=== PATIENT | female | born 1935 | race American Indian/Alaskan Native ===

== ENCOUNTER 2017-07-15 17:07 | Inpatient (IN) | payer MEDICARE, OTHER ==
[2017-07-15] MEDS ORDERED: MILK OF MAGNESIA PO PRN (17:35)
[2017-07-15] MEDS ORDERED: DULCOLAX PR PRN (17:35)
[2017-07-15] MEDS ORDERED: TYLENOL PO PRN (17:35)
[2017-07-15] MEDS ORDERED: ZOFRAN IV PRN (17:35)
--- NOTE | 2017-07-15 20:46 | Short Stay Summary ---
<HOLLY PADILLA - Last Filed: 07/15/17 20:44> Short Stay Documentation Date of service: 07/15/17 Narrative H&P: 81 year old female with dementia who had left lower extremity atherectomy and angioplasty for left lower extremity CLI. Perclose right [employer], but has some nausea and vomiting from anesthesia and developed right groin hematoma. Will admit for overnight monitoring and pressure dressing of RLE. - History H&P: obtained from office - Allergies and Medications Current Medications: Allergies No Known Allergies Allergy (Verified 04/28/13 16:21) Home Medications Medication Instructions Recorded Confirmed Last Taken Type ARIPiprazole [Abilify TAB] 5 mg PO DAILY 04/28/13 04/28/13 Unknown History Memantine [Namenda] 5 mg PO BID #60 tablet 05/02/13 Unknown Rx Simvastatin [Zocor TAB] 20 mg PO QHS #30 tablet 05/02/13 Unknown Rx amLODIPine [Norvasc] 10 mg PO QDAY #30 tablet 05/02/13 Unknown Rx glyBURIDE [Diabeta] 2.5 mg PO BID #60 tablet 05/02/13 Unknown Rx Active Medications Acetaminophen (Tylenol) 650 mg PO Q4H PRN PRN Reason: Pain MILD(1-3)/Fever >100.5/GARCIA Amlodipine Besylate (Norvasc) 10 mg PO QDAY [facility] Aspirin (Halfprin Ec) 81 mg PO QDAY [facility] Bisacodyl (Dulcolax) 10 mg AL QDAY PRN PRN Reason: Constipation unrelieved by MOM Clopidogrel Bisulfate (Plavix) 75 mg PO QDAY [facility] Glyburide (Diabeta) 2.5 mg PO BID [facility] Insulin Aspart (Novolog) 0 units SUB-Q ACHS [facility] PRN Reason: Protocol Magnesium Hydroxide (Milk Of Magnesia) 30 ml PO Q4H PRN PRN Reason: Constipation Memantine (Namenda) 5 mg PO BID [facility] Miscellaneous Medication (Aripiprazole [Abilify Tab]) 5 mg PO DAILY [facility] Miscellaneous Medication (Simvastatin) 20 mg PO QHS [facility] Ondansetron HCl (Zofran) 4 mg IV Q8H PRN PRN Reason: N/V unrelieved by Reglan - Physical exam General appearance: no acute distress Lungs: Normal air movement Extremities: normal temperature, normal color, abnormal (mild right groin hematoma, right groin compression bandage) - Disposition Disposition: DC-01 TO HOME OR SELFCARE - Discharge Diagnoses (1) Hematoma of groin Status: Acute Short Stay Discharge Plan Follow up with: CHRIS SANTOS MD [Primary Care Provider] - 7 Days HOLLY PADILLA MD [Staff Physician] - 14 Days <MAGO BREWER - Last Filed: 07/16/17 12:02> Short Stay Documentation Date of service: 07/16/17 - Allergies and Medications Current Medications: Allergies No Known Allergies Allergy (Verified 04/28/13 16:21) Home Medications Medication Instructions Recorded Confirmed Last Taken Type ARIPiprazole [Abilify TAB] 5 mg PO DAILY 04/28/13 04/28/13 Unknown History Memantine [Namenda] 5 mg PO BID #60 tablet 05/02/13 Unknown Rx Simvastatin [Zocor TAB] 20 mg PO QHS #30 tablet 05/02/13 Unknown Rx amLODIPine [Norvasc] 10 mg PO QDAY #30 tablet 05/02/13 Unknown Rx glyBURIDE [Diabeta] 2.5 mg PO BID #60 tablet 05/02/13 Unknown Rx Active Medications Acetaminophen (Tylenol) 650 mg PO Q4H PRN PRN Reason: Pain MILD(1-3)/Fever >100.5/GARCIA Amlodipine Besylate (Norvasc) 10 mg PO DAILY [facility] Aripiprazole (Abilify) 5 mg PO QDAY [facility] Last Admin: 07/16/17 10:00 Dose: Not Given Aspirin (Halfprin Ec) 81 mg PO QDAY [facility] Bisacodyl (Dulcolax) 10 mg AL QDAY PRN PRN Reason: Constipation unrelieved by MOM Calcitriol (Rocaltrol) 0.25 mcg PO MoWeFr [facility] Clonidine HCl (Catapres) 0.1 mg PO BID [facility] Last Admin: 07/16/17 10:00 Dose: Not Given Clopidogrel Bisulfate (Plavix) 75 mg PO QDAY [facility] Last Admin: 07/16/17 07:56 Dose: Not Given Dextrose (D50w (25gm) Syringe) 50 ml IV PRN PRN PRN Reason: Hypoglycemia Donepezil HCl (Aricept) 10 mg PO QHS [facility] Famotidine (Pepcid) 20 mg PO BID@1200,1700 [facility] Furosemide (Lasix) 40 mg PO QDAY [facility] Glyburide (Diabeta) 2.5 mg PO BID [facility] Last Admin: 07/16/17 07:54 Dose: Not Given Insulin Aspart (Novolog) 0 units SUB-Q ACHS [facility] PRN Reason: Protocol Last Admin: 07/16/17 07:30 Dose: Not Given Isosorbide Dinitrate/Hydralazine (Bidil 20/37.5mg) 1 each PO Q8HR [facility] Last Admin: 07/16/17 08:30 Dose: Not Given Levothyroxine Sodium (Synthroid) 25 mcg PO Q48H [facility] Last Admin: 07/16/17 08:30 Dose: Not Given Linagliptin (Tradjenta) 5 mg PO QDAY [facility] Magnesium Hydroxide (Milk Of Magnesia) 30 ml PO Q4H PRN PRN Reason: Constipation Memantine (Namenda) 5 mg PO BID [facility] Last Admin: 07/16/17 00:01 Dose: 5 mg Metoprolol Succinate (Toprol Xl) 50 mg PO QHS [facility] Ondansetron HCl (Zofran) 4 mg IV Q8H PRN PRN Reason: N/V unrelieved by Reglan Pravastatin Sodium (Pravachol) 40 mg PO QHS [facility] Last Admin: 07/16/17 00:01 Dose: 40 mg - Hospital course Hospital course: Patient was sent from soft intervention due to the development of right groin hematoma. She had a CT scan to rule out retroperitoneal hematoma. It was negative. She had arterial duplex this morning to rule out pseudoaneurysm, it was negative. Short Stay Discharge Plan Activity: advance as tolerated Diet: regular Wound: open to air
--- NOTE | 2017-07-15 20:48 | Event Note ---
Date: 07/15/17 Vital signs stable. No tachycardia. Doing well. Will check CBC today and tomorrow. CT a/p without contrast to exclude RP bleed. Supine overnight with pressure bandage. Tomorrow AM will get arterial doppler. Afterwards, will assess for discharge.
[2017-07-15] MEDS ORDERED: D50W (25GM) Syringe IV PRN (20:51)
[2017-07-15] MEDS ORDERED: NACL 0.9% 1000 ML 1,000 ML IV ONE (21:00)
[2017-07-15 21:40] LABS: Basophils % (Auto) 0.3 % (0.0-1.8); Eosinophils % (Auto) 0.4 % (0.0-4.3); Hematocrit 28.1 % (30.3-42.9); Hemoglobin 9.5 gm/dl (10.1-14.3); Mean Corpuscular HGB Conc 34 % (30-34); Mean Corpuscular Hemoglobin 28 pg (28-32); Mean Corpuscular Volume 83 fl (79-97); Platelet Count 438 K/mm3 (140-440); Red Blood Count 3.37 M/mm3 (3.65-5.03); Red Cell Distribution Width 15.1 % (13.2-15.2); White Blood Count 10.1 K/mm3 (4.5-11.0)
[2017-07-15] MEDS ORDERED: DIABETA PO SCH (22:00)
[2017-07-15] MEDS ORDERED: NON-FORMULARY (Simvastatin 20 MG) PO SCH (22:00)
[2017-07-15] MEDS ORDERED: PLAVIX PO ONE (22:53)
--- NOTE | 2017-07-15 23:34 | Cat Scan Report ---
FINAL REPORT PROCEDURE: CT ABDOMEN PELVIS WO CON TECHNIQUE: Computerized axial tomography of the abdomen and pelvis was performed without intravenous contrast. This study is performed without intravascular contrast material and its sensitivity for abdominal and pelvic pathology, including neoplasms, inflammation, abscess, free fluid, thrombosis, arterial dissection and infarction, is reduced compared with a contrast enhanced study. HISTORY: RETROPERITONEAL HEMATOMA COMPARISON: No prior studies are available for comparison. FINDINGS: Lower Lung sheikh: There is mild dependent atelectasis. Lung bases otherwise unremarkable. Upper Abdomen: Large densely calcified gallstones seen in the gallbladder. Gallbladder otherwise unremarkable. The unenhanced CT scan of the liver, the adrenal glands, the pancreas and the spleen are unremarkable. Small hiatal hernia is present. Kidneys, Ureters and Urinary bladder: Renal arterial calcifications visualized on the left. No renal calculi are seen on the right or left. No hydronephrosis or renal masses are seen. The ureters and urinary bladder are unremarkable. Retroperitoneum: Atherosclerotic changes are seen in the abdominal aorta. No aneurysm is visualized. No abnormal retroperitoneal fluid or masses are seen that would suggest retroperitoneal hemorrhage. Nonspecific subcentimeter lymph nodes are seen in the retroperitoneum. No pathologically enlarged lymph nodes are identified. Bowel: No abnormalities are identified. No evidence of bowel obstruction. There is no free intraperitoneal gas. Minimal ascites collected in the lower pelvis posteriorly. Normal-appearing appendix is seen in the right lower quadrant. Reproductive organs: Uterus is surgically absent. No abnormal adnexal masses are seen. Other: No acute bony abnormalities are identified. There is a large open wound in the right groin. There is inflammatory change seen in the adjacent subcutaneous adipose tissue. IMPRESSION: No evidence of retroperitoneal hemorrhage or mass. Minimal ascites present. Prior hysterectomy. Large open wound seen in the right groin. Inflammatory change visualized. No focal fluid collection is identified..
[2017-07-16] MEDS: NAMENDA PO SCH ×3 (00:01→23:33)
[2017-07-16] MEDS: PRAVACHOL PO SCH ×2 (00:01→23:32)
[2017-07-16] MEDS: CATAPRES PO SCH ×3 (00:04→23:35)
[2017-07-16] MEDS: NOVOLOG SUB-Q SCH ×5 (00:13→23:15)
[2017-07-16] MEDS ORDERED: SYNTHROID PO SCH (06:00)
[2017-07-16 06:30] LABS: Basophils % (Auto) 0.7 % (0.0-1.8); Eosinophils % (Auto) 3.5 % (0.0-4.3); Hematocrit 23.3 % (30.3-42.9); Hemoglobin 7.5 gm/dl (10.1-14.3); Mean Corpuscular HGB Conc 32 % (30-34); Mean Corpuscular Hemoglobin 27 pg (28-32); Mean Corpuscular Volume 84 fl (79-97); Platelet Count 347 K/mm3 (140-440); Red Blood Count 2.77 M/mm3 (3.65-5.03); Red Cell Distribution Width 14.9 % (13.2-15.2); White Blood Count 6.8 K/mm3 (4.5-11.0)
[2017-07-16] MEDS: BIDIL 20/37.5MG PO SCH ×4 (07:54→23:34)
[2017-07-16] MEDS: PLAVIX PO SCH ×2 (07:56→12:48)
[2017-07-16] MEDS ORDERED: PNEUMOVAX 23 IM ONE (09:02)
[2017-07-16] MEDS ORDERED: Fluarix Quad 2017-2018(36 MOS+ IM ONE (09:02)
[2017-07-16] MEDS ORDERED: NON-FORMULARY (Aripiprazole [Abilify Tab] 5 MG) PO SCH (10:00)
[2017-07-16] MEDS ORDERED: ABILIFY PO SCH (10:00)
[2017-07-16] MEDS ORDERED: TRADJENTA PO SCH (10:00)
[2017-07-16] MEDS: PEPCID PO SCH ×2 (10:00→20:49)
[2017-07-16] MEDS ORDERED: HALFPRIN EC PO SCH (10:00)
[2017-07-16] MEDS ORDERED: NORVASC PO SCH ×2 (10:00)
[2017-07-16] MEDS ORDERED: LASIX PO SCH (10:00)
--- NOTE | 2017-07-16 10:47 | Progress Note ---
Assessment and Plan s/p left LE angiogram, right groin access with small hematoma. CT scan negative for retroperitoneal hematoma. plan for arterial duplex today. If negative - d/c home. Subjective Date of service: 07/16/17 Principal diagnosis: right groin hematoma Interval history: right groin with pressure dressing, no complains Objective - Exam Narrative Exam: small right groin hematoma, no bleeding, feet warm - Constitutional Vitals: Vital Signs - 12hr 07/16/17 07/16/17 00:04 07:41 Temperature 98.9 F Pulse Rate 63 66 Respiratory 18 Rate Blood Pressure 152/60 172/52 O2 Sat by Pulse 98 Oximetry - Labs CBC & Chem 7: 07/16/17 05:40 Labs: Abnormal lab results 07/15/17 07/15/17 07/16/17 Range/Units 20:57 22:40 05:40 RBC 3.37 L 2.77 L (3.65-5.03) M/mm3 Hgb 9.5 L 7.5 L (10.1-14.3) gm/dl Hct 28.1 L 23.3 L (30.3-42.9) % MCH 27 L (28-32) pg Lymph % (Auto) 4.7 L 12.2 L (13.4-35.0) % [facility] % (Auto) 8.9 H 12.1 H (0.0-7.3) % Lymph # 0.5 L 0.8 L (1.2-5.4) K/mm3 [facility] # 0.9 H (0.0-0.8) K/mm3 Seg Neutrophils % 85.7 H 71.5 H (40.0-70.0) % Seg Neutrophils # 8.6 H (1.8-7.7) K/mm3 POC Glucose 180 H (70-105) 07/16/17 Range/Units 07:01 RBC (3.65-5.03) M/mm3 Hgb (10.1-14.3) gm/dl Hct (30.3-42.9) % MCH (28-32) pg Lymph % (Auto) (13.4-35.0) % [facility] % (Auto) (0.0-7.3) % Lymph # (1.2-5.4) K/mm3 [facility] # (0.0-0.8) K/mm3 Seg Neutrophils % (40.0-70.0) % Seg Neutrophils # (1.8-7.7) K/mm3 POC Glucose 115 H (70-105)
[2017-07-16] MEDS ORDERED: NACL 0.9% 500 ML 500 ML IV ONE (11:06)
--- NOTE | 2017-07-16 11:06 | Consultation ---
History of Present Illness - Reason for Consult Consult date: 07/16/17 anemia - History of Present Illness this is a 81 year old female with dementia who had left lower extremity atherectomy and angioplasty for left lower extremity CLI yesterday. following the procedure she developed some nausea and vomiting from anesthesia and developed right groin hematoma. She was admitted for overnight monitoring and pressure dressing of RLE. This morning her hb was 7.5, CT abdomen ordered for possible retroperitoneal hematoma. Patient denies any bloody vomitus, blood in the stool, dizziness, chest pain or SOB. No reported hematurea. Right groin hematoma had very minimal blood loss. Medicine service was consulted for further evaluation and management of her anemia Review of System: Constitutional: no fever, no chills, no weight loss Ears, eyes, nose, mouth and throat: no nasal congestion, no nasal discharge, no sinus pressure, no vision change, no red eye. Neck: No neck pain or rigidity. Cardiovascular: No chest pain, no orthopnea, no palpitations, no leg swelling Respiratory: No shortness of breath, no cough, no congestion, no wheezing Gastrointestinal: no abdominal pain, no nausea, no vomiting Genitourinary : no dysuria, no hematuria Musculoskeletal: no joint swelling or muscle ache Integumentary: no rash, no pruritis Neurological: no parathesias, no numbness, no tingling Endocrine: no cold or heat intolerance, no polyuria or polydipsia Hematologic/Lymphatic: no easy bruising, no easy bleeding, no gland swelling Allergic/Immunologic: no urticaria, no angioedema. Past History Past Medical History: diabetes, hypertension, hyperlipidemia, PVD, other ( dementia) Past Surgical History: Other (angioplasty yesterday) Social history: denies: smoking, alcohol abuse, IV drug use Family history: hypertension Medications and Allergies Allergies Allergy/AdvReac Type Severity Reaction Status Date / Time No Known Allergies Allergy Verified 04/28/13 16:21 Home Medications Medication Instructions Recorded Confirmed Last Taken Type ARIPiprazole [Abilify TAB] 5 mg PO DAILY 04/28/13 04/28/13 Unknown History Memantine [Namenda] 5 mg PO BID #60 tablet 05/02/13 Unknown Rx Simvastatin [Zocor TAB] 20 mg PO QHS #30 tablet 05/02/13 Unknown Rx amLODIPine [Norvasc] 10 mg PO QDAY #30 tablet 05/02/13 Unknown Rx glyBURIDE [Diabeta] 2.5 mg PO BID #60 tablet 05/02/13 Unknown Rx Active Meds: Active Medications Acetaminophen (Tylenol) 650 mg PO Q4H PRN PRN Reason: Pain MILD(1-3)/Fever >100.5/GARCIA Amlodipine Besylate (Norvasc) 10 mg PO DAILY [facility] Aripiprazole (Abilify) 5 mg PO QDAY [facility] Aspirin (Halfprin Ec) 81 mg PO QDAY [facility] Bisacodyl (Dulcolax) 10 mg DC QDAY PRN PRN Reason: Constipation unrelieved by MOM Calcitriol (Rocaltrol) 0.25 mcg PO MoWeFr [facility] Clonidine HCl (Catapres) 0.1 mg PO BID [facility] Last Admin: 07/16/17 00:04 Dose: 0.1 mg Clopidogrel Bisulfate (Plavix) 75 mg PO QDAY [facility] Last Admin: 07/16/17 07:56 Dose: Not Given Dextrose (D50w (25gm) Syringe) 50 ml IV PRN PRN PRN Reason: Hypoglycemia Donepezil HCl (Aricept) 10 mg PO QHS [facility] Famotidine (Pepcid) 20 mg PO BID@1200,1700 [facility] Furosemide (Lasix) 40 mg PO QDAY [facility] Glyburide (Diabeta) 2.5 mg PO BID [facility] Last Admin: 07/16/17 07:54 Dose: Not Given Insulin Aspart (Novolog) 0 units SUB-Q ACHS [facility] PRN Reason: Protocol Last Admin: 07/16/17 00:13 Dose: Not Given Isosorbide Dinitrate/Hydralazine (Bidil 20/37.5mg) 1 each PO Q8HR [facility] Last Admin: 07/16/17 08:30 Dose: Not Given Levothyroxine Sodium (Synthroid) 25 mcg PO Q48H [facility] Last Admin: 07/16/17 08:30 Dose: Not Given Linagliptin (Tradjenta) 5 mg PO QDAY [facility] Magnesium Hydroxide (Milk Of Magnesia) 30 ml PO Q4H PRN PRN Reason: Constipation Memantine (Namenda) 5 mg PO BID [facility] Last Admin: 07/16/17 00:01 Dose: 5 mg Metoprolol Succinate (Toprol Xl) 50 mg PO QHS [facility] Ondansetron HCl (Zofran) 4 mg IV Q8H PRN PRN Reason: N/V unrelieved by Reglan Pravastatin Sodium (Pravachol) 40 mg PO QHS [facility] Last Admin: 07/16/17 00:01 Dose: 40 mg Exam - Physical Exam Narrative exam: GENERAL: This is well-developed well-nourished elderly -Mexican female lying on bed appeared to be in no discomfort. HEENT: Normocephalic. Atraumatic. Extraocular motions are intact. No conjunctival congestion or icterus. Patient has moist mucous membranes. External auditory canal and nares patent bilaterally. NECK: Supple. Trachea midline. No JVD, thyromagaly or lymphadenopathy. CHEST/LUNGS: Clear to auscultated bilaterally. There is no respiratory distress noted, breathing nonlabored. No wheezes crackles or rhonchi. HEART/CARDIOVASCULAR: Regular in rate and rhythm. PMI at the apex. There is no gallop rub or murmur. ABDOMEN: Abdomen is soft, nontender. Patient has normal bowel sounds. There is no abdominal distention. No organomagaly or rigidity. SKIN: There is no rash, no erythrema. There is no diaphoresis. Warm and dry. NEUROLOGY: The patient is awake, alert, and oriented. The patient is cooperative. The patient has normal speech. No focal motor deficit. MUSCULOSKELETAL: No joint effusion or tenderness. Muscle strength equal bilaterally. No muscle wasting. EXTRIMITY: No edema, cyanosis or clubbing. Right groin with slightly blood stained pressure dressing with no active bleeding PSYCH: No depression or anxiety noted. Cooperative. - Constitutional Vitals: Temp Pulse Resp BP Pulse Ox 98.9 F 66 18 172/52 98 07/16/17 07:41 07/16/17 07:41 07/16/17 07:41 07/16/17 07:41 07/16/17 07:41 Results - Labs CBC & Chem 7: 07/17/17 05:55 07/16/17 13:28 Labs: Abnormal lab results 07/15/17 07/15/17 07/16/17 Range/Units 20:57 22:40 05:40 RBC 3.37 L 2.77 L (3.65-5.03) M/mm3 Hgb 9.5 L 7.5 L (10.1-14.3) gm/dl Hct 28.1 L 23.3 L (30.3-42.9) % MCH 27 L (28-32) pg Lymph % (Auto) 4.7 L 12.2 L (13.4-35.0) % [place] % (Auto) 8.9 H 12.1 H (0.0-7.3) % Lymph # 0.5 L 0.8 L (1.2-5.4) K/mm3 [place] # 0.9 H (0.0-0.8) K/mm3 Seg Neutrophils % 85.7 H 71.5 H (40.0-70.0) % Seg Neutrophils # 8.6 H (1.8-7.7) K/mm3 POC Glucose 180 H (70-105) 07/16/17 Range/Units 07:01 RBC (3.65-5.03) M/mm3 Hgb (10.1-14.3) gm/dl Hct (30.3-42.9) % MCH (28-32) pg Lymph % (Auto) (13.4-35.0) % [place] % (Auto) (0.0-7.3) % Lymph # (1.2-5.4) K/mm3 [place] # (0.0-0.8) K/mm3 Seg Neutrophils % (40.0-70.0) % Seg Neutrophils # (1.8-7.7) K/mm3 POC Glucose 115 H (70-105) - Imaging and Cardiology CT scan - abdomen: report reviewed (no retroperitoneal hematoma) Assessment and Plan Right groin hematoma Anemia due to blood loss h/o dementia Hypertension, controlled with current meds Hyperkalemia, likely from declining renal function Pham, likely due to vasomotor vs contrast nephropathy PVD - plan for vascular US today - CT abdomen/pelvis showed no intra-abdominal hematoma - will transfuse one unit of packed RBC - cont home meds, hold any heparin product - Monitor renal function, monitor electrolytes level - We'll do anemia workup before transportation - Recommend gentle hydration, and to continue current home meds - Recommend DVT prophylaxis with SCD
[2017-07-16 14:35] LABS: Hemoglobin 6.8 gm/dl (10.1-14.3); Mean Corpuscular HGB Conc 34 % (30-34); Mean Corpuscular Hemoglobin 28 pg (28-32); Mean Corpuscular Volume 83 fl (79-97); Platelet Count 324 K/mm3 (140-440); Red Blood Count 2.41 M/mm3 (3.65-5.03); Red Cell Distribution Width 15.1 % (13.2-15.2); White Blood Count 6.1 K/mm3 (4.5-11.0)
[2017-07-16 14:52] LABS: Calcium 8.4 mg/dL (8.4-10.2); Chloride 96.3 mmol/L (98-107); Potassium 5.1 mmol/L (3.6-5.0)
[2017-07-16 15:03] LABS: Hematocrit 19.9 % (30.3-42.9)
--- NOTE | 2017-07-16 15:07 | Event Note ---
Date: 07/16/17 Got consult to evaluate the pt for anemia. CT abdomen/pelvis did not show any retroperitoneal bleeding. vascular team repeated right LE US and plannned to d/c the patient after blood transfusion. Ordered stat lab for anemia work up. Will sign off as pt will be discharge, please call us back if pt remains in house.
[2017-07-16 16:18] LABS: Iron 22 ug/dL (37-170); Total Iron Binding Capacity 259 mcg/dL (250-450); Transferrin 219 mg/dl (192-382)
[2017-07-16] MEDS ORDERED: NACL 0.9% 500 ML 500 ML ONE (20:59)
[2017-07-16] MEDS ORDERED: ARICEPT PO SCH (22:00)
[2017-07-16] MEDS ORDERED: TOPROL XL PO SCH (22:00)
[2017-07-16] MEDS ORDERED: CATAPRES PO SCH (22:00)
[2017-07-17 06:20] LABS: Hematocrit 27.9 % (30.3-42.9); Hemoglobin 9.3 gm/dl (10.1-14.3)
[2017-07-17] MEDS: BIDIL 20/37.5MG PO SCH (07:57)
[2017-07-17] MEDS ORDERED: FEOSOL PO SCH (10:00)
[2017-07-17 11:18] LABS: Calcium 8.9 mg/dL (8.4-10.2); Potassium 4.8 mmol/L (3.6-5.0)
--- NOTE | 2017-07-17 13:58 | Progress Note ---
Assessment and Plan s/p left LE angiogram, right groin access with small hematoma. CT scan negative for retroperitoneal hematoma. arterial duplex negative patient had low H/H and received 1u PRBC. She responded well. f/u nephrology for cr 2.9 -3.[address] Ferguson those numbers are baseline plan for discharge home today Subjective Date of service: 07/17/17 Principal diagnosis: right groin hematoma Interval history: right groin small hematoma, no complains Objective - Exam Narrative Exam: small right groin hematoma, no bleeding, feet warm - Constitutional Vitals: Vital Signs - 12hr 07/17/17 07:32 Temperature 98.8 F Pulse Rate 66 Respiratory 16 Rate Blood Pressure 184/51 O2 Sat by Pulse 98 Oximetry - Labs CBC & Chem 7: 07/17/17 05:55 07/17/17 10:27 Labs: Abnormal lab results 07/16/17 07/16/17 07/16/17 Range/Units 13:28 13:28 13:37 RBC 2.41 L (3.65-5.03) M/mm3 Hgb 6.8 L (10.1-14.3) gm/dl Hct 19.9 L* (30.3-42.9) % Sodium 132 L (137-145) mmol/L Potassium 5.1 H (3.6-5.0) mmol/L Chloride 96.3 L (98-107) mmol/L BUN 46 H (7-17) mg/dL Creatinine 2.9 H (0.7-1.2) mg/dL Glucose 165 H (65-100) mg/dL POC Glucose (70-105) Iron (37-170) ug/dL Vitamin B12 (211-911) pg/mL Crossmatch See Detail 07/16/17 07/16/17 07/16/17 Range/Units 15:41 15:47 15:57 RBC (3.65-5.03) M/mm3 Hgb (10.1-14.3) gm/dl Hct (30.3-42.9) % Sodium (137-145) mmol/L Potassium (3.6-5.0) mmol/L Chloride (98-107) mmol/L BUN (7-17) mg/dL Creatinine (0.7-1.2) mg/dL Glucose (65-100) mg/dL POC Glucose 142 H (70-105) Iron 22 L (37-170) ug/dL Vitamin B12 1212 H (211-911) pg/mL Crossmatch 07/17/17 07/17/17 07/17/17 Range/Units 05:55 10:27 11:45 RBC (3.65-5.03) M/mm3 Hgb 9.3 L (10.1-14.3) gm/dl Hct 27.9 L D (30.3-42.9) % Sodium 133 L (137-145) mmol/L Potassium (3.6-5.0) mmol/L Chloride (98-107) mmol/L BUN 40 H (7-17) mg/dL Creatinine 3.0 H (0.7-1.2) mg/dL Glucose 130 H (65-100) mg/dL POC Glucose 144 H (70-105) Iron (37-170) ug/dL Vitamin B12 (211-911) pg/mL Crossmatch
--- NOTE | 2017-07-17 14:48 | Progress Note ---
Assessment and Plan Right groin hematoma following s/p left LE angiogram Anemia s/p 1 unit PRBC transfusion h/o dementia Hypertension, controlled with current meds Hyperkalemia, likely from declining renal function CKD, Cr at baseline PVD - CT scan negative for retroperitoneal hematoma. - arterial duplex negative - patient had low H/H and received 1u PRBC. She responded well. - patient's baseline creatine cr 2.0 -3.0 - plan for discharge home today with outpt followup Subjective Date of service: 07/17/17 Principal diagnosis: right groin hematoma Interval history: Pt seen and examined no further acute event O/n No overt acute bleeding reported resolved right groin hematoma patient denies any acute chest pain or SOB Objective - Exam Narrative Exam: GENERAL: This is well-developed well-nourished elderly -Maltese female lying on bed appeared to be in no discomfort. HEENT: No conjunctival congestion or icterus. Patient has moist mucous membranes. NECK: Supple. Trachea midline. No JVD CHEST/LUNGS: Clear to auscultated bilaterally. There is no respiratory distress noted, breathing nonlabored. HEART/CARDIOVASCULAR: Regular in rate and rhythm. PMI at the apex. ABDOMEN: Abdomen is soft, nontender. Patient has normal bowel sounds. SKIN: There is no rash, no erythrema. NEUROLOGY: The patient is awake, alert, and oriented. The patient is cooperative. MUSCULOSKELETAL: No joint effusion or tenderness. EXTRIMITY: No edema, cyanosis or clubbing. Right groin with slightly blood stained pressure dressing with no active bleeding PSYCH: Cooperative. - Constitutional Vitals: Vital Signs - 12hr 07/17/17 07:32 Temperature 98.8 F Pulse Rate 66 Respiratory 16 Rate Blood Pressure 184/51 O2 Sat by Pulse 98 Oximetry - Labs CBC & Chem 7: 07/17/17 05:55 07/17/17 10:27 Labs: Abnormal lab results 07/16/17 07/16/17 07/16/17 Range/Units 13:28 13:28 13:37 Hgb (10.1-14.3) gm/dl Hct 19.9 L* (30.3-42.9) % Sodium 132 L (137-145) mmol/L Potassium 5.1 H (3.6-5.0) mmol/L Chloride 96.3 L (98-107) mmol/L BUN 46 H (7-17) mg/dL Creatinine 2.9 H (0.7-1.2) mg/dL Glucose 165 H (65-100) mg/dL POC Glucose (70-105) Iron (37-170) ug/dL Vitamin B12 (211-911) pg/mL Crossmatch See Detail 07/16/17 07/16/17 07/16/17 Range/Units 15:41 15:47 15:57 Hgb (10.1-14.3) gm/dl Hct (30.3-42.9) % Sodium (137-145) mmol/L Potassium (3.6-5.0) mmol/L Chloride (98-107) mmol/L BUN (7-17) mg/dL Creatinine (0.7-1.2) mg/dL Glucose (65-100) mg/dL POC Glucose 142 H (70-105) Iron 22 L (37-170) ug/dL Vitamin B12 1212 H (211-911) pg/mL Crossmatch 07/17/17 07/17/17 07/17/17 Range/Units 05:55 10:27 11:45 Hgb 9.3 L (10.1-14.3) gm/dl Hct 27.9 L D (30.3-42.9) % Sodium 133 L (137-145) mmol/L Potassium (3.6-5.0) mmol/L Chloride (98-107) mmol/L BUN 40 H (7-17) mg/dL Creatinine 3.0 H (0.7-1.2) mg/dL Glucose 130 H (65-100) mg/dL POC Glucose 144 H (70-105) Iron (37-170) ug/dL Vitamin B12 (211-911) pg/mL Crossmatch
--- NOTE | 2017-07-17 15:14 | Progress Note ---
Subjective Date of service: 07/17/17 Principal diagnosis: right groin hematoma Interval history: Was called to consult on Pt. Pt's daughter says patient's provisioning specialist is Dr Maria. RN to consult Dr Maria. Objective - Vital Signs Vital signs: Vital Signs - 12hr 07/17/17 07:32 Temperature 98.8 F Pulse Rate 66 Respiratory 16 Rate Blood Pressure 184/51 O2 Sat by Pulse 98 Oximetry - Lab 07/17/17 05:55 07/17/17 10:27 Most recent lab results Calcium 8.9 mg/dL (8.4-10.2) 07/17/17 10:27
--- NOTE | 2017-07-17 15:38 | XRay Report ---
FINAL REPORT PROCEDURE: XR CHEST 1V AP TECHNIQUE: Chest radiograph anteroposterior view. CPT 24270 HISTORY: volume status COMPARISON: No prior studies are available for comparison. FINDINGS: The heart is mildly enlarged. The pulmonary vasculature appears mildly distended. I cannot exclude mild fluid overload. No definite pulmonary edema or pleural effusions are seen. No infiltrates or masses are identified. Bones appear to be diffusely demineralized. No acute bony abnormalities are identified. IMPRESSION: Mild cardiomegaly with mild pulmonary venous hypertension changes. I cannot exclude mild fluid overload. No definite pulmonary edema or pleural effusions are identified. Osteoporosis..
--- NOTE | 2017-07-17 17:36 | Event Note ---
Date: 07/17/17 81 year old female with KNOWN CRI (Cr 3.5), dementia, right groin hematoma. Had small hematoma. Anemia noted. Transfused 1 pRBC. No pseudoaneurysm. Ambulating without issue. Discussed with Dr. Batres. Doing well. Cancelled nephrology consult. Discussed with charge nurse and patient. Discharge order placed.
[2017-07-17 19:17] VITALS: BP 141/53
[2017-07-18] MEDS ORDERED: ROCALTROL PO SCH (10:00)
--- NOTE | 2017-07-19 11:28 | Vascular Lab Report ---
LOWER EXTREMITY ARTERIAL DUPLEX: REASON FOR EXAM: Nonhealing ulcers. COMMENTS ON THE RIGHT: Biphasic waveforms are seen proximally. Monophasic waveforms are seen distally. No significant velocity gradients are identified. No focal significant plaque is identified. Findings are consistent with normal perfusion. Findings are inconclusive with the ability to heal distal wounds. COMMENTS ON THE LEFT: Triphasic waveforms are seen proximally. Monophasic waveforms are seen distally. No significant velocity gradients are identified. No focal significant plaque is identified. Findings are consistent with normal perfusion. Findings are inconclusive with the ability to heal distal wounds. IMPRESSION: RIGHT: Essentially normal arterial flow. LEFT:Essentially normal arterial flow. Consider ABIs to determine ability to heal wounds.
== END 2017-07-17 19:33 | disposition home or self-care (01) | DRG 919 ==
LOC: 3A 17:07 → UNDOADMIN 17:07 → 3A 18:29
PROVIDERS: ADMIT Radiology Diagnostic Radiology; ATTEND Radiology Diagnostic Radiology
PROC: 30233N1 Transfusion of Nonautologous Red Blood Cells into Peripheral Vein, Percutaneous Approach (ICD-10-PCS; principal; 2017-07-16)
DX: L76.32 Postprocedural hematoma of skin and subcutaneous tissue following other procedure (principal); N17.0 Acute kidney failure with tubular necrosis; I13.0 Hypertensive heart and chronic kidney disease with heart failure and stage 1 through stage 4 chronic kidney disease, or unspecified chronic kidney disease; N18.9 Chronic kidney disease, unspecified; D50.0 Iron deficiency anemia secondary to blood loss (chronic); E11.22 Type 2 diabetes mellitus with diabetic chronic kidney disease; Y84.0 Cardiac catheterization as the cause of abnormal reaction of the patient, or of later complication, without mention of misadventure at the time of the procedure; F03.90 Unspecified dementia, unspecified severity, without behavioral disturbance, psychotic disturbance, mood disturbance, and anxiety; I50.9 Heart failure, unspecified; E78.00 Pure hypercholesterolemia, unspecified; Z90.710 Acquired absence of both cervix and uterus; Z98.51 Tubal ligation status; Z86.73 Personal history of transient ischemic attack (TIA), and cerebral infarction without residual deficits; Z80.9 Family history of malignant neoplasm, unspecified; Z83.3 Family history of diabetes mellitus; Z82.49 Family history of ischemic heart disease and other diseases of the circulatory system; Y92.89 Other specified places as the place of occurrence of the external cause
CPT/HCPCS: 36415; 71010; 74176; 80048; 82607; 82728; 82747; 82962; 83550; 83880; 84466; 85018; 85025; 85027; 86850; 86900; 86901; 86920; 90686; 90732; 93925; A9270-GY; J1815; J7030; J7040; P9016